=== PATIENT | male | born 1970 | race Two or more races ===

== ENCOUNTER 2016-12-04 11:20 | Emergency (ER) | payer MEDICAID ==
[~2016-12-04] VITALS: Ht 182.9 cm; Wt 79.4 kg
[2016-12-04] MEDS ORDERED: FAMC250T PO (12:43)
[2016-12-04 13:13] LABS: BLOOD UREA NITROGEN 17 mg/dL (7-18)
[2016-12-04 13:59] VITALS: BP 143/83
== END 2016-12-04 14:01 | disposition home or self-care (01) ==
LOC: ED 13:31
DX: M79.671 Pain in right foot (principal); J30.9 Allergic rhinitis, unspecified; J02.8 Acute pharyngitis due to other specified organisms
CPT/HCPCS: 36415; 80048; 81003; 82040; 85025; 87081; 87880; 99284

== ENCOUNTER 2017-04-04 18:20 | Emergency (ER) | payer MEDICAID ==
[~2017-04-04] VITALS: Ht 182.9 cm; Wt 79.9 kg
[~2017-04-04 18:20] MED LIST: FAMC250T PO
[2017-04-04 18:26] VITALS: BP 125/77
[2017-04-04] MEDS ORDERED: KETOROLAC 30 MG/1 ML ONE (18:48)
[2017-04-04] MEDS ORDERED: KETOROLAC 30 MG/1 ML IM ONE (19:00)
== END 2017-04-04 19:54 | disposition home or self-care (01) ==
LOC: ED 19:40
DX: S20.211A Contusion of right front wall of thorax, initial encounter (principal); W18.09XA Striking against other object with subsequent fall, initial encounter; Y93.89 Activity, other specified; Y92.89 Other specified places as the place of occurrence of the external cause; Y99.8 Other external cause status
CPT/HCPCS: 71020; 73030; 96372; 99284; J1885

== ENCOUNTER 2017-04-08 15:34 | Emergency (ER) | payer MEDICAID ==
[~2017-04-08] VITALS: Ht 182.9 cm; Wt 80.1 kg
[2017-04-08 16:18] LABS: HEMATOCRIT 42.6 % (39.2-51.8); HEMOGLOBIN 14.2 g/dL (13.7-18.0); WHITE BLOOD COUNT 9.4 x10^3/uL (3.4-10)
[2017-04-08] MEDS ORDERED: OXYcodone/APAP 10/325MG TABLET PO ONE (16:30)
[2017-04-08 16:31] LABS: BLOOD UREA NITROGEN 17 mg/dL (7-18)
[2017-04-08] MEDS ORDERED: OXYcodone/APAP 10/325MG TABLET ONE (16:31)
[2017-04-08 17:17] VITALS: BP 142/72
== END 2017-04-08 17:19 | disposition home or self-care (01) ==
LOC: ED 16:21
DX: S29.9XXA Unspecified injury of thorax, initial encounter (principal); R11.0 Nausea; M54.9 Dorsalgia, unspecified; G89.29 Other chronic pain; W18.30XA Fall on same level, unspecified, initial encounter; Y93.89 Activity, other specified; Y92.090 Kitchen in other non-institutional residence as the place of occurrence of the external cause; Y99.8 Other external cause status
CPT/HCPCS: 36415; 71010; 80048; 82040; 83605; 85025; 99285

== ENCOUNTER 2017-04-25 11:27 | Emergency (ER) | payer MEDICAID ==
[~2017-04-25] VITALS: Ht 182.9 cm; Wt 75.3 kg
[2017-04-25] MEDS ORDERED: SODIUM CHLORIDE 0.9% 1,000 ML IV ONE (11:49)
[2017-04-25] MEDS ORDERED: FAMOTIDINE 20 MG/2 ML ONE (11:58)
[2017-04-25] MEDS ORDERED: ONDANSETRON 2MG/ML, 2ML ONE (11:58)
[2017-04-25] MEDS ORDERED: KETOROLAC 30 MG/1 ML ONE (11:58)
[2017-04-25] MEDS ORDERED: SODIUM CHLORIDE 0.9% 1,000ML IVBOLUS ONE (12:00)
[2017-04-25] MEDS ORDERED: SODIUM CHLORIDE FLUSH 10ML SYR IVF ONE (12:00)
[2017-04-25] MEDS ORDERED: ONDANSETRON 2MG/ML, 2ML IVPush ONE (12:00)
[2017-04-25] MEDS ORDERED: KETOROLAC 30 MG/1 ML IVPush ONE (12:00)
[2017-04-25] MEDS ORDERED: FAMOTIDINE 20 MG/2 ML IVP ONE (12:00)
[2017-04-25 12:09] LABS: HEMATOCRIT 48.6 % (39.2-51.8); HEMOGLOBIN 16.3 g/dL (13.7-18.0); WHITE BLOOD COUNT 9.7 x10^3/uL (3.4-10)
[2017-04-25 12:16] VITALS: BP 129/85
[2017-04-25 12:32] LABS: BLOOD UREA NITROGEN 24 mg/dL (7-18)
[2017-04-25 12:34] LABS: ASPARTATE AMINO TRANSFERASE 18 U/L (15-37)
[2017-04-25] MEDS ORDERED: PROPOFOL 0 ML IV ONE (13:24)
== END 2017-04-25 13:39 | disposition home or self-care (01) ==
LOC: ED 11:49
DX: K29.00 Acute gastritis without bleeding (principal)
CPT/HCPCS: 36415; 80053; 83690; 85025; 96361; 96374; 96375; 99284; J1885; J2405; J7030; S0028

== ENCOUNTER 2017-05-13 11:33 | Emergency (ER) | payer MEDICAID ==
[~2017-05-13] VITALS: Ht 182.9 cm; Wt 76.8 kg
[2017-05-13 11:46] VITALS: BP 123/90
== END 2017-05-13 12:29 | disposition home or self-care (01) ==
LOC: ED 12:22
DX: K08.89 Other specified disorders of teeth and supporting structures (principal)
CPT/HCPCS: 99283

== ENCOUNTER 2017-07-14 13:51 | Emergency (ER) | payer MEDICAID ==
[~2017-07-14] VITALS: Ht 180.3 cm; Wt 77.4 kg
[2017-07-14 14:46] VITALS: BP 141/86
[2017-07-14] MEDS ORDERED: ONDANSETRON ODT 4 MG ONE (15:35)
[2017-07-14] MEDS ORDERED: ACETAMINOPHEN 500 MG TABLET ONE (15:35)
[2017-07-14] MEDS: ONDANSETRON 8 MG TABLET PO ONE ×2 (15:37→15:40)
[2017-07-14] MEDS ORDERED: ONDANSETRON ODT 8 MG ONE (15:39)
[2017-07-14] MEDS ORDERED: ACETAMINOPHEN 500 MG TABLET PO ONE (16:00)
== END 2017-07-14 15:42 | disposition home or self-care (01) ==
LOC: ED 15:25
DX: J32.9 Chronic sinusitis, unspecified (principal); R51 Headache; H92.02 Otalgia, left ear
CPT/HCPCS: 99283; Q0162

== ENCOUNTER 2017-07-23 11:53 | Emergency (ER) | payer MEDICAID ==
[~2017-07-23] VITALS: Ht 180.3 cm; Wt 76.0 kg
[2017-07-23] MEDS ORDERED: DEXAMETHASONE 4 MG TABLET PO ONE (13:30)
[2017-07-23] MEDS ORDERED: HYDROmorphone 1 MG/ML, 1ML IM ONE (13:30)
[2017-07-23] MEDS ORDERED: DEXAMETHASONE 4 MG TABLET ONE (14:08)
[2017-07-23] MEDS ORDERED: HYDROmorphone 2 MG/ML, 1ML ONE (14:08)
[2017-07-23 15:04] VITALS: BP 149/90
== END 2017-07-23 15:49 | disposition home or self-care (01) ==
LOC: ED 14:07
DX: J32.0 Chronic maxillary sinusitis (principal)
CPT/HCPCS: 96372; 99283; J1170

== ENCOUNTER 2017-07-31 09:58 | Emergency (ER) | payer MEDICAID ==
[~2017-07-31] VITALS: Ht 182.9 cm; Wt 76.5 kg
[2017-07-31 10:03] VITALS: BP 143/88
[2017-07-31] MEDS ORDERED: ONDANSETRON 2MG/ML, 2ML ONE ×2 (11:28→12:41)
[2017-07-31] MEDS ORDERED: FAMOTIDINE 20 MG/2 ML ONE (11:28)
[2017-07-31] MEDS ORDERED: SODIUM CHLORIDE FLUSH 10ML SYR IVF ONE (11:30)
[2017-07-31] MEDS ORDERED: SODIUM CHLORIDE 0.9% 1,000ML IVBOLUS ONE (11:30)
[2017-07-31] MEDS ORDERED: ONDANSETRON 2MG/ML, 2ML IVPush ONE ×2 (11:30→12:30)
[2017-07-31] MEDS ORDERED: FAMOTIDINE 20 MG/2 ML IVP ONE (11:30)
[2017-07-31 11:47] LABS: HEMOGLOBIN 15.1 g/dL (13.7-18.0); WHITE BLOOD COUNT 8.1 x10^3/uL (3.4-10)
[2017-07-31 11:57] LABS: ASPARTATE AMINO TRANSFERASE 10 U/L (15-37); BLOOD UREA NITROGEN 15 mg/dL (7-18)
[2017-07-31] MEDS ORDERED: KETOROLAC 30 MG/1 ML IVPush ONE (12:30)
[2017-07-31] MEDS ORDERED: DIPHENHYDRAMINE 50 MG/ML, 1ML IVPush ONE (12:30)
[2017-07-31] MEDS ORDERED: DIPHENHYDRAMINE 50 MG/ML, 1ML ONE (12:41)
[2017-07-31] MEDS ORDERED: KETOROLAC 30 MG/1 ML ONE (12:41)
== END 2017-07-31 13:49 | disposition home or self-care (01) ==
LOC: ED 13:33
DX: J00 Acute nasopharyngitis [common cold] (principal); R11.2 Nausea with vomiting, unspecified; G89.29 Other chronic pain; M54.9 Dorsalgia, unspecified
CPT/HCPCS: 36415; 80053; 83690; 85025; 96361; 96374; 96375; 96376; 99284; J1200; J1885; J2405; J7030; S0028